=== PATIENT | female | born 2000 | race Caucasian/White ===

== ENCOUNTER → 2022-10-29 11:57 | Outpatient (CLI) | payer OTHER, SELFPAY ==
--- NOTE | ~2022-10-29 | US_ITS ---
EXAMINATION: US transvaginal DATE: 10/29/2022 12:23 INDICATION: Missing IUD strings Comparison:No prior studies for comparison. TECHNIQUE: Multiple transabdominal and endovaginal sonographic images of the pelvis performed. FINDINGS: The uterus measures 6.3 x 4.3 x 3.7 cm. There is an IUD present in the endometrium. The end ometrial complex measures 9 mm. The right ovary measures 3.4 x 2.4 x 1.8 cm and the left ovary measures 2.5 x 1.7 x 2 cm. There are small follicles in each ovary. Normal doppler signal in both ovaries. There is no free fluid in the pelvis. There are no abnormal masses seen on either side. IMPRESSION: 1. Unremarkable pelvic ultrasound. Reviewed, dictated and finalized at location []
== END ==
PROVIDERS: PCP Nurse Practitioner; Visit Provider Nurse Practitioner
DX: T83.32XA Displacement of intrauterine contraceptive device, initial encounter (principal)
CPT/HCPCS: 76830